=== PATIENT | male | born 1995 | race Asian ===

== ENCOUNTER 2020-01-04 01:03 | Outpatient (CLI) | payer OTHER, SELFPAY ==
[2020-01-04 17:41] LABS: SARS-CoV-2 RNA PCR Negative
== END 2020-01-04 01:04 | disposition home or self-care (01) ==
LOC: ANHCOVIDDT 01:05
PROVIDERS: Visit Provider Plastic Surgery
DX: Z01.812 Encounter for preprocedural laboratory examination (principal); Z20.828 Contact with and (suspected) exposure to other viral communicable diseases
CPT/HCPCS: 87635; C9803; U0003

== ENCOUNTER 2020-01-06 02:15 | Day surgery (SDC) | payer OTHER, SELFPAY ==
[2020-01-01 10:06] VITALS: BMI 21.6
[2020-01-06] VITALS (8 sets, daily range): BP systolic 112–130; BP diastolic 67–82; PULSE 55–74; RESP 14–22; TEMP 35.9–36.2; O2SAT 99–100
--- NOTE | 2020-01-06 06:46 | P.PNAN_ITS ---
Anes - Initial Pre Proc Eval Procedure: Operation Date: 01/06/20 07:30 Proposed Procedures p Repair Flexor Tendon and Digital Nerve Left Index Finger - Abraham hTibodeaux MD Date/Time: 01/06/20 06:46 Surgeon: Abraham Thibodeaux MD Pre Op Diagnosis: flexor tendon laceration left index finger Patient Data Age: 24 Gender: M Height: 5 ft 11 in Weight: 70.31 kg Allergies Allergy/AdvReac Type Severity Reaction Status Date / Time No Known Allergies Allergy Verified 01/01/20 10:07 Home Medications Medication Instructions Recorded Confirmed Type ibuprofen 800 mg PO Q6H PRN 01/01/20 01/01/20 History Patient hx anesthesia problems: none Family hx anesthesia problems: none [facility] Social History Social History Smoking status: Never smoker Alcohol intake: current Drinks per week: 3 Anes - Eval Final PreProcedure Day of Procedure 01/06/20 06:46 Patient weight: normal Heart: regular rate and rhythm Lungs: clear to auscultation Airway: Mallampati scale class 1 Neurological: alert and oriented Last oral intake: >/= 8 hours ASA classification: I Emergent: no Anesthetic plan: proceed Anesthesia type and monitoring: general LMA and standard monitoring Informed Consent: The patient's anesthetic plan and its attendant risks and benefits were discussed with the patient/family/POA. Questions were solicited and answers provided to the satisfaction of the patient/family/POA.
[2020-01-06] MEDS: LACTATED RINGERS 1,000 ML 30 ML IV CONT ×2 (07:10→11:47)
--- NOTE | 2020-01-06 07:20 | WPDHPUPDATE1 ---
History and Physical Update Update Date/Time: 01/06/20 07:20 History and Physical has been reviewed, including an updated exam of the patient. There are NO changes in the patient's condition. Risks, benefits, and alternatives have been discussed and questions answered. Patient agrees to proceed with procedure.
[2020-01-06] MEDS: ceFAZolin SODIUM 1 GM VIAL 2 GM IV PUSH (08:01)
[2020-01-06] MEDS: LIDO 1%/EPINEPHRINE 1:100,000 20 ML VIAL INFILTRATE (08:24)
--- NOTE | 2020-01-06 12:20 | P.OPB_ITS ---
Procedure Note - Brief Procedure Note - Brief Date of procedure: 01/06/20 Pre-op diagnosis: flexor tendon laceration left index finger Post-op diagnosis: other (Laceration of the left index FDP tendon, partial laceration of FDP tendon, Laceration of the radial digital nerve.) Description of procedure: Repair of the two tendons and the radial digital nerve. Anesthesia: GETA Surgeon: Abraham Thibodeaux MD [employer] Service Engineer: Cori Whitaker Estimated blood loss (mL): 5 Drains: No Packing: No Pathology: none sent Complications: No immediate complications Condition: stable Disposition: PACU
--- NOTE | 2020-01-07 15:13 | P.OP_ITS ---
Procedure Note - Detailed Date of procedure: 01/07/20 Pre-op diagnosis: flexor tendon laceration left index finger Laceration of flexor digitorum profundus left index finger zone 2 Laceration of radial slip of flexor digitorum superficialis left index finger zone 2. Laceration of radial digital nerve left index finger. Post-op diagnosis: same Procedure performed: Primary repair of flexor digitorum profundus to left index finger zone 2. Primary repair of the radial slip of the flexor digitorum superficialis to left index finger in zone 2. Primary repair of the radial digital nerve to the left index finger. Description of procedure: The index finger of to solid or was marked as the waited in the holding area. He was taken to the operating room and placed supine on the operating table. A time-out was held and confirmed. He was given general endotracheal anesthesia. The left upper extremity was prepped and draped in usual fashion. The finger was carefully marked for access incisions utilizing the transverse wound in the middle phalanx. The digit was blocked with 1% lidocaine with epinephrine as an intrathecal block and to both dorsal nerves. The tourniquet was inflated to 250 mmHg. The skin flaps were carefully elevated starting near the laceration. The distal stump of the flexor digitorum profundus was identified easily at the proximal edge of the A2 erma the radial slip of the superficialis was identified to be divided but not . The radial digital nerve ends were identified in the same area and in close proximity to each other. The proximal stump of the profundus was found between the A1 and A2 pulleys. It was retrieved by pulling distally on the superficial tendon. The transfixing 25 gauge 5/8 in. needle retained it in position for repairs. The superficialis was repaired 1st with 4-0 FiberWire 2 strand locking stitch and 2 [id number] stitches. The repair did not impede full passive extension of the proximal interphalangeal joint. The profundus tendon was lacerated diagonally and with bevelling of approximately 10 mm. It was repaired with 2 side by side 2 strand locking core sutures. One was 3-0 FiberWire and the other 4-0 FiberWire. An epitendinous stitch was with 6 0 nylon was used. It was started before the core sutures were placed Due to the curving characteristic of the original laceration, the sheath extending from the distal A2 erma to the proximal A 4 erma had been completely opened. It was necessary to vent the A 4 erma approximately 3 mm to allow distal movement of the repair site to provide 0 degrees of PIP extension. Attention was turned to the radial digital nerve. Both ends were freshened approximately 1 mm. The repair was accomplished with 2 interrupted epineural 9 nylon sutures. A 5 0 nylon stitch was placed to coapt adjacent subcutaneous tissue to reduce any tension on the nerve repair which I did not feel was excessive. Those nerve ends were very neatly transected without bevel. The skin was closed with interrupted running 5 0 nylon suture. Additional 0.5% Marcaine was placed as an intrathecal block. A bulky bandage with the dorsal blocking splint with the wrist extended the metacarpophalangeals of flexed was applied. Patient was transported from the operating room in stable condition. The tourniquet time was 90 minutes followed by 60 minutes with a 15 minute aliyah k. He had been given 2 g of Ancef preop. He is discharged with a prescription for hydrocodone . Surgeon: Abraham Thibodeaux MD
== END 2020-01-06 13:45 | disposition home or self-care (01) ==
PROVIDERS: Visit Provider Plastic Surgery
PROC: (CPT 26356; principal; 2020-01-06 07:30)
DX: S66.121A Laceration of flexor muscle, fascia and tendon of left index finger at wrist and hand level, initial encounter (principal); S64.491A Injury of digital nerve of left index finger, initial encounter; W26.8XXA Contact with other sharp object(s), not elsewhere classified, initial encounter
CPT/HCPCS: 26356 ×2; 64831; A9270; J0690; J1644; J2250; J2405; J2704; J3010; J7120